=== PATIENT | female | born 1985 | race Caucasian/White ===

== ENCOUNTER 2017-10-09 05:03 | Inpatient (IN) | payer BC ==
[2017-10-09] MEDS ORDERED: Sodium Chloride 0.9% 10 ML Syringe FLUSH PRN (05:10)
[2017-10-09] MEDS ORDERED: Carboprost Tromethamine 250 MCG/1 ML Amp IM PRN (05:10)
[2017-10-09] MEDS ORDERED: Butorphanol 1 MG/ML SDV IVPUSH PRN (05:10)
[2017-10-09] MEDS ORDERED: Methylergonovine 0.2 MG/1 ML Amp IM PRN ×2 (05:10→12:22)
[2017-10-09] MEDS ORDERED: Misoprostol 200 MCG Tab PO PRN (05:10)
[2017-10-09] MEDS ORDERED: Nalbuphine 10 MG/1 ML Vial IVPUSH PRN (05:10)
[2017-10-09] MEDS ORDERED: Lidocaine 1% 50 ML MDV INJECT PRN (05:10)
[2017-10-09] MEDS ORDERED: Water For Irrigation,Sterile 1,000 ML Container IRR PRN (05:10)
[2017-10-09] MEDS ORDERED: Sodium Chloride 0.9% 2.5 ML Syringe FLUSH PRN (05:10)
[2017-10-09] MEDS ORDERED: Terbutaline 1 MG/ML SDV SUBCUT PRN (05:12)
[2017-10-09] MEDS ORDERED: Oxytocin/0.9 % Sodium Chloride 30 UNIT/500 ML BAG IV SCH (05:15)
[2017-10-09] MEDS: Lactated Ringers 1,000 ML IV SCH ×3 (05:36→10:02)
[2017-10-09] MEDS ORDERED: ePHEDrine 50 MG/ML SDV ONE (08:55)
[2017-10-09] MEDS ORDERED: Ropivacaine HCl/PF 100 ML ONE (08:56)
[2017-10-09] MEDS ORDERED: Ropivacaine 0.2% 2 MG/ML 20 ML SDV ONE (08:56)
[2017-10-09] MEDS ORDERED: fentaNYL 100 MCG/2 ML SDV ONE (08:56)
--- NOTE | 2017-10-09 09:39 | PCM.PREANE ---
Preanesthetic Assessment - Procedure Proposed Procedure: labor epidural - Anesthesia/Transfusion/Family Hx Anesthesia History: No Prior Anesthesia Family History of Anesthesia Reaction: No Transfusion History: No Prior Transfusion(s) - Review of Systems General: No Symptoms Pulmonary: No Symptoms Cardiovascular: No Symptoms Gastrointestinal: No Symptoms Neurological: No Symptoms Other: Reports: None - Physical Assessment Height: 1.68 m Weight: 63.049 kg ASA Class: 2 Mental Status: Alert & Oriented x3 Dentition: Reports: Normal Dentition Thyro-Mental Finger Breadths: 3 Mouth Opening Finger Breadths: 3 ROM/Head Extension: Full Lungs: Clear to Auscultation, Normal Respiratory Effort Cardiovascular: Regular Rate, Regular Rhythm - Lab Values: Laboratory Last Values WBC 8.90 K/uL (4.0-11.0) 10/09/17 05:36 RBC 4.08 M/uL (4.30-5.90) L 10/09/17 05:36 Hgb 14.1 g/dL (12.0-16.0) 10/09/17 05:36 Hct 39.2 % (36.0-46.0) 10/09/17 05:36 MCV 96.1 fL (80.0-98.0) 10/09/17 05:36 MCH 34.6 pg (27.0-32.0) H 10/09/17 05:36 MCHC 36.0 g/dL (31.0-37.0) 10/09/17 05:36 RDW Std Deviation 46.9 fl (28.0-62.0) 10/09/17 05:36 RDW Coeff of Moises 14 % (11.0-15.0) 10/09/17 05:36 Plt Count 126 K/uL (150-400) L 10/09/17 05:36 MPV 12.80 fL (7.40-12.00) H 10/09/17 05:36 Nucleated RBC % 0.0 /100WBC 10/09/17 05:36 Nucleated RBCs # 0 K/uL 10/09/17 05:36 POC Glucose 55 mg/dL (60-110) L 10/09/17 07:55 Blood Type O NEGATIVE 10/09/17 05:36 Antibody Screen NEGATIVE 10/09/17 05:36 - Allergies Allergies/Adverse Reactions: Allergies Allergy/AdvReac Type Severity Reaction Status Date / Time influenza virus vaccine tvs Allergy Hives Verified 10/09/17 05:10 (65 yr and up) [From Fluad (65yr+)(PF)] vaccine adjuvant emulsion Allergy Hives Verified 10/09/17 05:10 [id number] [From Fluad (65yr+)(PF)] - Blood Blood Available: Yes Product(s) Available: PRBC - Acknowledgements Anesthesia Type Planned: Epidural Pt an Appropriate Candidate for the Planned Anesthesia: Yes Alternatives and Risks of Anesthesia Discussed w Pt/Guardian: Yes Pt/Guardian Understands and Agrees with Anesthesia Plan: Yes PreAnesthesia Questionnaire Musculoskeletal History: Reports: Fracture Neurological History: Reports: Concussion Dermatologic History: Reports: Eczema - Infectious Disease History Infectious Disease History: Reports: Chicken Pox, Shingles - SUBSTANCE USE Smoking Status *Q: Former Smoker Tobacco Use Within Last Twelve Months: Cigarettes Second Hand Smoke Exposure: Yes Recreational Drug Use History: No - CURRENT (IN HOUSE) MEDS Current Meds: Current Medications Butorphanol Tartrate (Stadol) 1 mg IVPUSH Q1H PRN PRN Reason: Pain Carboprost Tromethamine (Hemabate Ds) 250 mcg IM ASDIRECTED PRN PRN Reason: Post Hemorrhage Lactated Ringer's (Ringers, Lactated) 1,000 mls @ 150 mls/hr IV ASDIRECTED CATHERINE Last Admin: 10/09/17 08:54 Dose: 150 mls/hr Oxytocin/Sodium Chloride (Oxytocin 30 Unit/500 Ml-Ns) 30 unit in 500 mls @ 2 mls/hr IV TITRATE CATHERINE; 2 MUNITS/MIN PRN Reason: Protocol Last Titration: 10/09/17 06:44 Dose: 4 munits/min, 4 mls/hr Lidocaine HCl (Xylocaine 1%) 50 ml INJECT .ONCE PRN PRN Reason: Laceration repair Methylergonovine Maleate (Methergine) 0.2 mg IM ASDIRECTED PRN PRN Reason: Post Hemorrhage Misoprostol (Cytotec) 200 mcg PO .ONCE PRN PRN Reason: Post Hemorrhage Nalbuphine HCl (Nubain) 10 mg IVPUSH Q1H PRN PRN Reason: Pain (severe 7-10) Sodium Chloride (Saline Flush) 10 ml FLUSH ASDIRECTED PRN PRN Reason: Keep Vein Open Sodium Chloride (Saline Flush) 2.5 ml FLUSH ASDIRECTED PRN PRN Reason: Keep Vein Open Sterile Water (Sterile Water For Irrigation) 1,000 ml IRR ASDIRECTED PRN PRN Reason: delivery Terbutaline Sulfate (Brethine) 0.25 mg SUBCUT ASDIRECTED PRN PRN Reason: Tacysystole Discontinued Medications Ephedrine Sulfate (Ephedrine Sulfate) Confirm Administered Dose 50 mg .ROUTE .STK-MED ONE Stop: 10/09/17 08:56 Fentanyl (Sublimaze) Confirm Administered Dose 300 mcg .ROUTE .STK-MED ONE Stop: 10/09/17 08:57 Ropivacaine (Naropin 0.2%) Confirm Administered Dose 100 mls @ as directed .ROUTE .STK-MED ONE Stop: 10/09/17 08:57 Ropivacaine (Naropin 0.2%) Confirm Administered Dose 20 ml .ROUTE .STK-MED ONE Stop: 10/09/17 08:57
--- NOTE | 2017-10-09 09:47 | PCM.PRNOTE ---
- Free Text/Narrative Note: Asked to see patient for epidural request for labor pain. Pt id,chart review and consent obtained. discussed epidural procedure and risks including nerve pain, nerve damage, bleeding, infection and/or unsuccessful placement. patient agrees. sitting up, sterile betadine prep x 3, sterile drape. 1% lidocaine SQ at L4. #25 touhy needle DANDRE saline to approximately 5 cm. No heme, no paresthesia. catheter easily placed to 10 cm at skin. test dose 3 ml 1.5% lidocaine with epinephrine 1:200,000. negative reaction. Pt. bolused with 100 mcg fentanyl and 4 ml 0.2% ropivicaine. Pt felt relief after two contractions. level with cold/wet sensation found to be t10 bilaterally. pain now 2/10. PCEA pump of 0.2% ropivicaine with fentanyl 2 mcg/ml running at 8 ml/hr with bolus of 8 ml/8 min with lockout volume limit of 32 ml. pt educated on use of PCEA pump. No complications noted
[2017-10-09] MEDS ORDERED: Bisacodyl 10 MG Supp RECTAL PRN (12:22)
[2017-10-09] MEDS ORDERED: Ibuprofen 400 MG Tab PO PRN (12:22)
[2017-10-09] MEDS ORDERED: Witch Hazel Medicated Pads 40/Jar TOP PRN (12:22)
[2017-10-09] MEDS ORDERED: Lanolin 100% Cream 7 GM Tube TOP PRN (12:22)
[2017-10-09] MEDS ORDERED: oxyCODONE 5 MG Tab PO PRN (12:22)
[2017-10-09] MEDS ORDERED: Docusate Sodium 100 MG Cap PO PRN (12:22)
[2017-10-09] MEDS ORDERED: Acetaminophen 500 MG Tab PO PRN (12:22)
[2017-10-09] MEDS ORDERED: Benzocaine/Menthol 20%-0.5% Spray 78 GM Cannister TOP PRN (12:22)
[2017-10-09] MEDS ORDERED: Diphtheria,Pertussis(Acell),Tetanus Vaccine 0.5 ML Syringe IM ONE (12:25)
[2017-10-09] MEDS: Ibuprofen 800 MG Tab PO PRN ×2 (13:58→20:31)
--- NOTE | 2017-10-09 17:47 | OR ---
SURGEON: Zo Chu M.D. DATE OF PROCEDURE: 10/09/2017 PREOPERATIVE DIAGNOSIS: 1. 39 and 1/7th week intrauterine . 2. Poor maternal weight gain during . POSTOPERATIVE DIAGNOSIS: 1. 39 and 1/7th week intrauterine . 2. Poor maternal weight gain during . PROCEDURE: 1. Pitocin induction of labor with term spontaneous vaginal delivery. 2. Repair of right periurethral laceration. ANESTHESIA: Epidural. ESTIMATED BLOOD LOSS: Less than 300 mL. FINDINGS: Live born female, score of 9 and 9, weighing 2760 grams. Placenta was delivered spontaneously, Schultze intact with 3 vessels. Accessory lobe was noted. COMPLICATIONS: None known. DISPOSITION: Stable to recovery. BRIEF HISTORY: This is a 31-year-old female. She is -0-0-1. She presents at 39 and 1/7th weeks' gestation for induction of labor. She refused her glucose tolerance test during . She was therefore monitored for blood sugar levels. She began to follow a diabetic diet and lost a significant amount of weight. She was informed that she was not diabetic. She should follow a regular diet and her weight did stabilize through the . She presents for induction of labor. She received Pitocin IV up to a maximum of 6 milliunits per minute. When she was 2-3 cm dilated, she was known to be group B strep negative. Therefore artificial rupture of membranes was performed. Shortly thereafter, she received an epidural for pain control. She had category 1 heart tones throughout labor. She progressed to complete. DESCRIPTION OF PROCEDURE: With the patient in dorsal lithotomy position, under adequate epidural analgesia, the patient pushed over a 10-minute time period to a 5+ station, at which time, the head was delivered spontaneously and atraumatically over the perineum with support, with subsequent delivery of the 's shoulders and body without any difficulty. The was bulb suctioned by nose and mouth. The cord was clamped x2 and cut and the infant was handed to the nurse in attendance at delivery. The infant was a liveborn female, score of 9 and 9, weighing 2760 grams. Pitocin was given after delivery of the infant to assist with delivery of the placenta which was delivered spontaneously, Schultze intact with 3 vessels. There was accessory lobe noted; however, it appeared that all of the tissue was completely intact. Upon inspection of the pelvis and perineum, there were no vaginal sidewall, cervical, rectal, or perineal lacerations. Medial to the right labia and lateral to the urethra, there was an abrasion that was bleeding and therefore a single [id number] suture of 2-0 Polysorb was utilized for hemostasis. Final sponge, needle, and instrument count were correct. There were no known complications. Infant/ remained in [facility]DRP in good condition. CAROLINA VILLANUEVA /[id number]
[2017-10-09] MEDS: Acetaminophen 500 MG Tab PO PRN ×2 (18:32→23:59)
[2017-10-10] MEDS: Ibuprofen 800 MG Tab PO PRN ×2 (04:17→12:26)
--- NOTE | 2017-10-10 07:43 | PCM48HPAN ---
Post Anesthesia Note - EVALUATION WITHIN 48HRS OF ANESTHETIC Vital Signs in Normal Range: Yes Patient Participated in Evaluation: Yes Respiratory Function Stable: Yes Airway Patent: Yes Cardiovascular Function Stable: Yes Hydration Status Stable: Yes Pain Control Satisfactory: Yes Nausea and Vomiting Control Satisfactory: Yes Mental Status Recovered: Yes - COMMENTS/OBSERVATIONS Free Text/Narrative:: had c/o headache initially, but with rest motrin and hydration feeling much better
--- NOTE | 2017-10-10 08:07 | PCM.PNPP ---
- General Info Date of Service: 10/10/17 Functional Status: Reports: Pain Controlled, Tolerating Diet, Ambulating, Urinating - Review of Systems General: Reports: No Symptoms HEENT: Reports: No Symptoms Pulmonary: Reports: No Symptoms Cardiovascular: Reports: No Symptoms Gastrointestinal: Reports: No Symptoms Genitourinary: Reports: No Symptoms Musculoskeletal: Reports: No Symptoms Skin: Reports: No Symptoms Neurological: Reports: No Symptoms Psychiatric: Reports: No Symptoms - Patient Data Vital Signs - Most Recent: Last Vital Signs Temp 37.7 C 10/09/17 20:00 Pulse 62 10/09/17 20:00 Resp 15 10/09/17 20:00 BP 120/62 10/09/17 20:00 Pulse Ox 95 10/09/17 20:00 Weight - Most Recent: 63.049 kg Lab Results - Last 24 Hours: Laboratory Results - last 24 hr 10/10/17 Range/Units 05:02 Hgb 13.2 (12.0-16.0) g/dL Hct 37.8 (36.0-46.0) % Med Orders - Current: Current Medications Acetaminophen (Tylenol Extra Strength) 500 mg PO Q4H PRN PRN Reason: Pain Acetaminophen (Tylenol Extra Strength) 1,000 mg PO Q4H PRN PRN Reason: Pain Last Admin: 10/09/17 23:59 Dose: 1,000 mg Benzocaine/Menthol (Dermoplast Pain Relief 20%-0.5% [place]) 78 gm TOP ASDIRECTED PRN PRN Reason: Perineal Comfort Measure Last Admin: 10/09/17 13:55 Dose: 1 applic Bisacodyl (Dulcolax) 10 mg RECTAL .ONCE PRN PRN Reason: Constipation Docusate Sodium (Colace) 100 mg PO BID PRN PRN Reason: Constipation Emollient Ointment (Lansinoh Hpa) 0 gm TOP ASDIRECTED PRN PRN Reason: Sore Nipples Ibuprofen (Motrin) 400 mg PO Q4H PRN PRN Reason: Pain Ibuprofen (Motrin) 800 mg PO Q6H PRN PRN Reason: Pain Last Admin: 10/10/17 04:17 Dose: 800 mg Methylergonovine Maleate (Methergine) 0.2 mg IM .ONCE PRN PRN Reason: Excessive Vaginal Bleeding Oxycodone HCl (Oxycodone) 5 mg PO Q2H PRN PRN Reason: Pain Witch Cindy (Tucks) 1 pad TOP ASDIRECTED PRN PRN Reason: comfort care Last Admin: 10/09/17 13:54 Dose: 1 pad Discontinued Medications Butorphanol Tartrate (Stadol) 1 mg IVPUSH Q1H PRN PRN Reason: Pain Carboprost Tromethamine (Hemabate Ds) 250 mcg IM ASDIRECTED PRN PRN Reason: Post Hemorrhage Diphtheria/Tetanus/Acell Pertussis (Adacel) 0.5 ml IM .ONCE ONE Stop: 10/09/17 12:26 Last Admin: 10/09/17 13:55 Dose: 0.5 ml Ephedrine Sulfate (Ephedrine Sulfate) Confirm Administered Dose 50 mg .ROUTE .STK-MED ONE Stop: 10/09/17 08:56 Last Admin: 10/10/17 06:35 Dose: Not Given Fentanyl (Sublimaze) Confirm Administered Dose 300 mcg .ROUTE .STK-MED ONE Stop: 10/09/17 08:57 Last Admin: 10/10/17 06:36 Dose: Not Given Lactated Ringer's (Ringers, Lactated) 1,000 mls @ 150 mls/hr IV ASDIRECTED CATHERINE Last Admin: 10/09/17 10:02 Dose: 150 mls/hr Oxytocin/Sodium Chloride (Oxytocin 30 Unit/500 Ml-Ns) 30 unit in 500 mls @ 2 mls/hr IV TITRATE CATHERINE; 2 MUNITS/MIN PRN Reason: Protocol Last Titration: 10/09/17 10:39 Dose: 6 munits/min, 6 mls/hr Ropivacaine (Naropin 0.2%) Confirm Administered Dose 100 mls @ as directed .ROUTE .STK-MED ONE Stop: 10/09/17 08:57 Last Admin: 10/10/17 06:36 Dose: Not Given Lidocaine HCl (Xylocaine 1%) 50 ml INJECT .ONCE PRN PRN Reason: Laceration repair Last Admin: 10/09/17 12:26 Dose: 50 ml Methylergonovine Maleate (Methergine) 0.2 mg IM ASDIRECTED PRN PRN Reason: Post Hemorrhage Misoprostol (Cytotec) 200 mcg PO .ONCE PRN PRN Reason: Post Hemorrhage Nalbuphine HCl (Nubain) 10 mg IVPUSH Q1H PRN PRN Reason: Pain (severe 7-10) Ropivacaine (Naropin 0.2%) Confirm Administered Dose 20 ml .ROUTE .[facility]-MED ONE Stop: 10/09/17 08:57 Last Admin: 10/10/17 06:36 Dose: Not Given Sodium Chloride (Saline Flush) 10 ml FLUSH ASDIRECTED PRN PRN Reason: Keep Vein Open Sodium Chloride (Saline Flush) 2.5 ml FLUSH ASDIRECTED PRN PRN Reason: Keep Vein Open Sterile Water (Sterile Water For Irrigation) 1,000 ml IRR ASDIRECTED PRN PRN Reason: delivery Last Admin: 10/09/17 12:26 Dose: 1,000 ml Terbutaline Sulfate (Brethine) 0.25 mg SUBCUT ASDIRECTED PRN PRN Reason: Tacysystole - Infant Interaction Infant Disposition, : at Bedside Infant Feeding: Bottle Fed Infant Support Person: - Recovery Exam Fundal Tone: Firm Fundal Level: At Umbilicus Fundal Placement: Midline Lochia Amount: Scant Lochia Color: Rubra/Red Perineum Description: Intact, Minimal Bruising/Swelling Episiotomy/Laceration: None Bladder Status: Voiding Urinary Elimination: Voided - Exam General: Alert, Oriented HEENT: Pupils Equal Neck: Supple Lungs: Normal Respiratory Effort GI/Abdominal Exam: Soft, Non-Tender, No Distention Extremities: Normal Inspection (trace edema bilaterally), Non-Tender Skin: Warm, Dry, Intact Wound/Incisions: Healing Well Neurological: No New Focal Deficit Psy/Mental Status: Alert, Normal Affect, Normal Mood - Problem List Review Problem List Initiated/Reviewed/Updated: Yes - My Orders Last 24 Hours: My Active Orders 10/09/17 12:22 Patient Status [ADT] Routine May Shower [RC] ASDIRECTED Up ad Lacy [RC] ASDIRECTED Vaccines to be Administered [RC] PER UNIT ROUTINE Vital Signs [RC] PER UNIT ROUTINE Acetaminophen [Tylenol Extra Strength] 1,000 mg PO Q4H PRN Acetaminophen [Tylenol Extra Strength] 500 mg PO Q4H PRN Benzocaine/Menthol [Dermoplast Pain Relief 20%-0.5% [place]] 78 gm TOP ASDIRECTED PRN Bisacodyl [Dulcolax] 10 mg RECTAL .ONCE PRN Docusate Sodium [Colace] 100 mg PO BID PRN Ibuprofen [Motrin] 400 mg PO Q4H PRN Ibuprofen [Motrin] 800 mg PO Q6H PRN Lanolin [Lansinoh HPA] See Dose Instructions TOP ASDIRECTED PRN Methylergonovine [Methergine] 0.2 mg IM .ONCE PRN Witch Cindy [Tucks] 1 pad TOP ASDIRECTED PRN oxyCODONE 5 mg PO Q2H PRN Assess Lochia [WOMSER] Per Unit Routine Assess Uterine Involution [WOMSER] Per Unit Routine Peripheral IV Discontinue [OM.PC] Routine Resuscitation Status Routine 10/09/17 Lunch Regular Diet [DIET] - Assessment Assessment:: PPD#1 after , stable, baby is Rh negative, minimal lochia, denies pain would like to go home today. - Plan Plan:: Discharge instructions reviewed. Return to clinic in 6 weeks.
[2017-10-10] MEDS: Acetaminophen 500 MG Tab PO PRN (08:57)
== END 2017-10-10 14:00 | disposition home or self-care (01) | DRG 542 ==
LOC: MW.OBCHECK 05:03 → MW.OB 05:05 → OBSVTOIN 11:54
PROVIDERS: ADMIT Obstetrics & Gynecology; ATTEND Obstetrics & Gynecology
PROC: 10E0XZZ Delivery of Products of Conception, External Approach (ICD-10-PCS; principal; 2017-10-09)
PROC: 3E0P3VZ Introduction of Hormone into Female Reproductive, Percutaneous Approach (ICD-10-PCS; 2017-10-09)
PROC: 10907ZC Drainage of Amniotic Fluid, Therapeutic from Products of Conception, Via Natural or Artificial Opening (ICD-10-PCS; 2017-10-09)
PROC: 0UQMXZZ Repair Vulva, External Approach (ICD-10-PCS; 2017-10-09)
PROC: 0TQDXZZ Repair Urethra, External Approach (ICD-10-PCS; 2017-10-09)
PROC: 00HU33Z Insertion of Infusion Device into Spinal Canal, Percutaneous Approach (ICD-10-PCS; 2017-10-09)
PROC: 3E0R3BZ Introduction of Anesthetic Agent into Spinal Canal, Percutaneous Approach (ICD-10-PCS; 2017-10-09)
DX: O26.13 Low weight gain in pregnancy, third trimester (principal); Z3A.39 39 weeks gestation of pregnancy; Z37.0 Single live birth; O70.0 First degree perineal laceration during delivery; O71.5 Other obstetric injury to pelvic organs; Z87.891 Personal history of nicotine dependence; Z88.7 Allergy status to serum and vaccine
CPT/HCPCS: 36415; 51702; 59025; 59409; 82962; 85014; 85018; 85027; 86850; 86900; 86901; 90471; 90715; A9270-GY; J2590; J7120